=== PATIENT | male | born 1985 | race Two or more races ===

== ENCOUNTER 2018-01-29 15:40 | Emergency (ER) | payer MEDICAID, OTHER ==
[~2018-01-29] VITALS: Ht 172.7 cm; Wt 79.4 kg
--- NOTE | 2018-01-29 16:07 | Emergency Room Report ---
History of Present Illness General Chief Complaint: Medication Refill Source: Patient Present Illness HPI 32-year-old male presents to the emergency department requesting medication refill. Patient reported to triage nurse that he is only moved here 2 weeks ago and is out of his regularly prescribed Adderall prescription. He reports having difficulty concentrating and therefore difficulty obtaining a job. Patient also states that his mother recently committed suicide which has also been affecting him. Patient denies SI or HI he denies history of substance abuse, prior suicide attempts or prior psychiatric hospitalizations. Upon further questioning patient reports that [place] [facility] [place]" but states only for acute distress due to the situation of moving out here and with his mom's recent . Patient denies pain, chest pain, shortness of breath or sudden severe headache. He also reports history of OCD for which his Adderall also treats. Allergies: Coded Allergies: No Known Allergies (Unverified , 01/29/18) Patient History Past Medical History: see triage record Past Surgical History: none Pertinent Family History: none Reviewed Nursing Documentation: PMH: Agreed; PSxH: Agreed Nursing Documentation-PMH Past Medical History: No History, Except For History Of Psychiatric Problem: Yes - ADHD/ OCD Review of Systems All Other Systems: negative except mentioned in HPI Physical Exam Vital Signs Date Time Temp Pulse Resp B/P (MAP) Pulse Ox O2 Delivery O2 Flow Rate FiO2 01/29/18 15:49 98.6 93 18 127/90 98 Room Air 98.6 Medical Decision Making PA Attestation Dr. Thomas is my supervising Physician whom patient management has been discussed with. Diagnostic Impression: Primary Impression: Encounter for medication refill ER Course Pt. request med refill of Adderall denies physical symptoms at this time, denies psychiatric symptoms. Prior to evaluation I reviewed this patient's cheers history it appears that this patient is regularly prescribed Adderall his last pill was 30 days ago. It is evident that this patient regularly sees and is prescribed his medications by psychiatric doctor in [place]. After initial history of present illness and ROS, I inquired about patient 's regular prescription from in [place] when he is claiming that he just recently moved here. Patient states that his primary prescribing provider is now refusing to fill his medication because someone at the [facility] facility which he was temporarily residing contacted his doctor, and had immediate d/c of medication with change to Wellbutrin. I am very familiar with this facility "[facility]" which is a substance abuse detox and rehabilitation center in [facility]. It does not provide for regular psychiatric conditions other than substance abuse. It is standard of care to d/c stimulants once admitted to facility. Patient denies history of substance abuse. I discussed with this patient that the emergency department does not refill regularly prescribed controlled substances that are not associated with an emergent condition. I discussed with this patient that I'll will instead be providing him [facility] psychiatric urgent care information for outpatient follow-up of medication evaluation as well as medication management. Ddx considered but are not limited to: drug seeking, OD, non-compliance, ADHD/ OCD, SI/HI just to name a few. Vital signs: are WNL, pt. is afebrile H&PE are most consistent with non emergent nor urgent need for medication refill as well as providing false information such as recently moving here, and recent substance abuse detox admission. ORDERS: none required at this time, the diagnosis is clinical, no emergent psychiatric conditions. ED INTERVENTIONS: None required at this time. DISCHARGE: At this time pt. is stable for d/c to home. Will provide printed patient care instructions, and any necessary prescriptions. Care plan and follow up instructions have been discussed with the patient prior to discharge. Last Vital Signs Date Time Temp Pulse Resp B/P (MAP) Pulse Ox O2 Delivery O2 Flow Rate FiO2 01/29/18 15:49 98.6 93 18 127/90 98 Room Air 98.6 Disposition: HOME, SELF-CARE Condition: Stable Scripts Bupropion Hcl* (WELLBUTRIN XL*) 150 Mg Tab.er.24h 150 MG ORAL DAILY for 7 Days, #7 TAB 0 Refills Prov: Macey Koehler 01/29/18 Patient Instructions: Medical Screening Exam Additional Instructions: Take any previously prescribed medications as directed. Follow up with a Mental Health Specialist/ Psychiatrist in 3 days, even if your symptoms have resolved. --Please review [facility]ENT [facility] resource information provided Return sooner to ED if new symptoms occur, or current symptoms become worse. - Please note that this Emergency Department Report was dictated using [employer] closer technology software, occasionally this can lead to erroneous entry secondary to interpretation by the dictation equipment. Macey Koehler Jan 29, 2018 16:07
[2018-01-29 16:16] VITALS: BP 127/90
[2018-01-29] MEDS ORDERED: WELLBUTRIN XL150 MG ORAL (16:28)
[2018-01-29 16:35] VITALS: BP 120/82
== END 2018-01-29 16:35 | disposition home or self-care (01) ==
LOC: EMR 16:25
DX: Z76.0 Encounter for issue of repeat prescription (principal)
CPT/HCPCS: 99282